=== PATIENT | male | born 1990 | race Caucasian/White ===

== ENCOUNTER 2020-12-05 11:47 | Emergency (ER) | payer SELFPAY ==
[~2020-12-05] VITALS: Ht 180.3 cm; Wt 108.0 kg
[2020-12-05 11:49] VITALS: BP_SYST 131
[2020-12-05] MEDS ORDERED: LORAZEPAM 2MG/ML CPJ IV STA (12:01)
[2020-12-05] MEDS ORDERED: SODIUM CHLORIDE 0.9% 1,000 ML IV ONE (12:15)
[2020-12-05] MEDS ORDERED: CLONAZEPAM 1MG TABLET PO ONE (12:15)
[2020-12-05 12:29] LABS: EOSINOPHILS % 1.9 % (0.0-5.0); HEMATOCRIT. 40.6 % (42.0-52.0); HEMOGLOBIN. 13.7 g/dL (14.0-18.0); LYMPHOCYTES % 25.1 % (20.0-50.0); MEAN CORPUSCULAR HEMOGLOBIN 31.1 pg (28.0-32.0); MEAN CORPUSCULAR VOLUME 92.4 fL (80.0-94.0); MEAN PLATELET VOLUME 7.9 fl (7.4-10.4); MONOCYTES % 5.4 % (2.0-8.0); NEUTROPHILS % 66.6 % (40.0-76.0); PLATELET 379 x1000/uL (130-400); RED BLOOD CELL COUNT 4.39 mill/uL (4.7-6.1); RED CELL DISTRIBUTION WIDTH 13.8 % (11.6-14.6)
[2020-12-05 12:37] LABS: CHLORIDE 105 mEq/L (98-107)
[2020-12-05 12:41] LABS: ETHANOL BLOOD < 10 mg/dL
[2020-12-05 14:48] VITALS: BP_DIAS 126
== END 2020-12-05 16:24 | disposition home or self-care (01) ==
LOC: ER 12:42
DX: R00.2 Palpitations (principal); R56.9 Unspecified convulsions; F41.9 Anxiety disorder, unspecified
CPT/HCPCS: 36415; 80053; 80320; 85025; 93005; 96361; 96374; 99284; J2060; J7030; Z7610; G0480

== ENCOUNTER 2020-12-12 14:12 | Emergency (ER) | payer SELFPAY ==
[~2020-12-12] VITALS: Ht 167.6 cm; Wt 80.0 kg
[2020-12-12 14:27] VITALS: BP 136/100
== END 2020-12-12 15:16 | disposition home or self-care (01) ==
LOC: ER 14:12
DX: F41.9 Anxiety disorder, unspecified (principal); Z98.890 Other specified postprocedural states; R56.9 Unspecified convulsions
CPT/HCPCS: 99283

== ENCOUNTER 2021-02-05 06:36 | Emergency (ER) | payer SELFPAY ==
[~2021-02-05] VITALS: Ht 180.3 cm; Wt 105.0 kg
[2021-02-05 08:15] VITALS: BP 136/92
== END 2021-02-05 08:43 | disposition home or self-care (01) ==
LOC: ER 06:36
DX: Z76.0 Encounter for issue of repeat prescription (principal); F41.9 Anxiety disorder, unspecified
CPT/HCPCS: 99281

== ENCOUNTER 2021-02-05 14:02 | Emergency (ER) | payer SELFPAY ==
[~2021-02-05] VITALS: Ht 180.3 cm; Wt 104.0 kg
[2021-02-05 15:08] VITALS: BP 148/86
== END 2021-02-05 15:09 | disposition home or self-care (01) ==
LOC: ER 14:02
DX: F41.9 Anxiety disorder, unspecified (principal)
CPT/HCPCS: 99281

== ENCOUNTER 2021-07-30 15:54 | Emergency (ER) | payer SELFPAY ==
[~2021-07-30] VITALS: Ht 175.3 cm; Wt 115.0 kg
[2021-07-30 15:59] VITALS: BP 120/88
== END 2021-07-30 18:58 | disposition left against medical advice (07) ==
LOC: ER 15:54
DX: Z53.21 Procedure and treatment not carried out due to patient leaving prior to being seen by health care provider (principal)
CPT/HCPCS: 93005

== ENCOUNTER 2021-08-04 20:12 | Emergency (ER) | payer SELFPAY | END 2021-08-04 22:16 | disposition left against medical advice (07) | LOC: ER 20:12 | DX: Z53.21 Procedure and treatment not carried out due to patient leaving prior to being seen by health care provider (principal) ==